=== PATIENT | male | born 1975 | race African-American/Black ===

== ENCOUNTER 2016-12-08 00:16 | Emergency (ER) | payer SELFPAY ==
[~2016-12-08] VITALS: Ht 177.8 cm; Wt 125.0 kg
[2016-12-08 00:19] VITALS: BP 191/113; PULSE 99; RESP 16; TEMP 99.3; O2SAT 96
[2016-12-08] MEDS ORDERED: ceFAZolin 2 GM PREMIX 50 ML IV ONE (00:30)
[2016-12-08] MEDS ORDERED: TETANUS/DIPHTHERIA TOXOID ADULT 0.5 ML VIAL IM ONE (00:30)
--- NOTE | 2016-12-08 01:46 | RADRPT ---
EXAM DATE/TIME: 12/08/2016 00:46 [place] COMPARISON: No previous studies available for comparison. INDICATIONS : Using chainsaw to cut down tree , struck leg with chainsaw just anterior to the patella. MEDICAL HISTORY : None. SURGICAL HISTORY : None. ENCOUNTER: Initial ACUITY: 1 day PAIN SCORE: 8/10 LOCATION: Right knee FINDINGS: Two view examination of the right knee demonstrates no evidence of fracture or dislocation. Bony min eralization is normal. The suprapatellar soft tissues have a normal configuration. CONCLUSION: No acute fracture. Hema Jorgensen MD on December 08, 2016 at 1:44 Board Certified Radiologist. This report was verified electronically.
--- NOTE | 2016-12-08 03:11 | PD ---
HPI Chief Complaint: Injury Time Seen by Provider: 03:04 Travel History International Travel<30 days: No Contact w/Intl Traveler<30days: No Traveled to known affect area: No History of Present Illness HPI 41-year-old black male presents to emergency department with a laceration to his right knee which occurred prior to arrival. The patient states that he was working with a chain saw and accidentally cut his right knee. He denies any numbness or tingling. Unsure last tetanus in position. PFSH Past Medical History Medical History: Denies Significant Hx Diminished Hearing: No Tetanus Vaccination: Unknown Influenza Vaccination: No Past Surgical History Surgical History: No Previous Surgery Social History Alcohol Use: No Tobacco Use: No Substance Use: No Allergies-Medications (Allergen,Severity, Reaction): Coded Allergies: No Known Allergies (Unverified , 12/08/16) Reported Meds & Prescriptions Reported Meds & Active Scripts Active Lortab (Hydrocodone-Acetaminophen) 5-325 Mg Tab 1 Tab PO Q8HR PRN Keflex (Cephalexin) 500 Mg Cap 500 Mg PO Q6H Review of Systems Except as stated in HPI: all other systems reviewed are Neg Physical Exam Narrative GENERAL: Well-developed, well-nourished in no apparent distress. Nontoxic appearing. HEAD: Normocephalic, atraumatic. EYES: Pupils equal round and reactive. Extraocular motions intact. No scleral icterus. No injection or drainage. ENT: Nose clear. Throat without erythema, tonsillar hypertrophy or exudate. Uvula midline. Airway patent. NECK: Trachea midline. Supple, nontender, moves head freely. No central bony tenderness or spasm. CARDIOVASCULAR: Regular rate and rhythm without murmurs, gallops, or rubs. RESPIRATORY: Clear to auscultation. Breath sounds equal bilaterally. No wheezes , rales, or rhonchi. GASTROINTESTINAL: Abdomen soft, non-tender, nondistended. No hepato-splenomegaly , or palpable masses. No guarding. EXTREMITIES: No clubbing, cyanosis, or edema. Patient has a deep laceration to the right leg over the patella. The laceration measures 6 cm. Neurovascular intact distally. BACK: Nontender without deformity. No flank tenderness. NEUROLOGICAL: Awake, alert and oriented x 3 .Cranial nerves grossly intact. Motor and sensory grossly within normal limits. Normal speech. Data Data Last Documented VS Vital Signs Date Time Temp Pulse Resp B/P Pulse Ox O2 Delivery O2 Flow Rate FiO2 12/08/16 00:37 16 12/08/16 00:19 99.3 99 191/113 96 Orders Knee, Ltd (1 Or 2vws) (12/08/16 00:26) Tetanus/Diphtheria Tox Adult (Tetanus/Di (12/08/16 00:30) Cefazolin 2 Gm Premix (Ancef 2 Gm Premix (12/08/16 00:30) [facility] Medical Decision Making Medical Screen Exam Complete: Yes Emergency Medical Condition: Yes Medical Record Reviewed: Yes Interpretation(s) Last 24 hours Impressions Knee X-Ray 12/08/16 0026 Signed Impressions: Service Date/Time: Thursday, December 08, 2016 00:46 - CONCLUSION: No acute fracture. Hema Jorgensen MD Differential Diagnosis MDM: High Differential diagnoses: Fracture, sprain, strain, dislocation, contusion, neurovascular injury Narrative Course IV access is obtained. Patient's given 2 g of Ancef IV, tetanus immunization. His wound is cleansed and closed. X-ray of the right knee reveals no acute bony injury. The skin is closed with sutures. Procedures Procedure Narrative LACERATION LOCATION: Right knee LENGTH: 6 cm NUMBER OF STITCHES/JASON: 10 REPAIR: The area of the laceration was prepped with Betadine and sterilely draped. The laceration was infiltrated with 1% lidocaine and 0.5% Marcaine. The wound was copiously irrigated and explored without evidence of foreign body , tendon injury or neurovascular injury. The wound was closed using 3-0 Prolene. This was a simple single layer repair. A sterile dressing was applied. The patient was advised to keep the dressing clean and dry. Patient tolerated the procedure well. Diagnosis Primary Impression: deep laceration right knee Patient Instructions: General Instructions Departure Forms: Tests/Procedures, Work Release Special Instructions: No work 2 days. Strict elevation above the heart. Additional Instructions: Rest. Elevation. keep clean and dry. Keflex and Lortab. Daily wound care with soap, water and Neosporin. Three Advil every 6 hours. Follow-up with a primary care doctor in one week. Sutures out in 12-14 days. Return to the ER for any problems. Med/Other Pt SpecificInfo: Prescription(s) given Scripts Hydrocodone-Acetaminophen (Lortab)5-325 Mg Tab1 Tab PO Q8HR PRN (PAIN) #12 TAB Prov:Shelli Jean MD 12/08/16 Cephalexin (Keflex)500 Mg [id number] Mg PO Q6H #28 CAP Prov:Shelli Jean MD 12/08/16 Disposition: 01 DISCHARGE HOME Condition: Stable Oren Recio Dec 08, 2016 03:11
[2016-12-08] MEDS ORDERED: CEPH-460 PO (03:12)
[2016-12-08] MEDS ORDERED: HYDR-3533 PO (03:12)
[2016-12-08 04:09] VITALS: BP 179/82
== END 2016-12-08 04:10 | disposition home or self-care (01) ==
LOC: NEPD 00:16
DX: S81.011A Laceration without foreign body, right knee, initial encounter (principal); W29.3XXA Contact with powered garden and outdoor hand tools and machinery, initial encounter; Y93.H2 Activity, gardening and landscaping; Z23 Encounter for immunization
CPT/HCPCS: 12002; 73560; 90471; 90714; 96365; 99283; J0690